=== PATIENT | male | born 1990 | race Caucasian/White ===

== ENCOUNTER 2018-04-22 12:05 | Emergency (ER) | payer BC | END 2018-04-22 12:41 | disposition home or self-care (01) | LOC: NAV ERS 12:05 | DX: M54.5 Low back pain (principal); R20.0 Anesthesia of skin; B20 Human immunodeficiency virus [HIV] disease; F41.9 Anxiety disorder, unspecified; F17.210 Nicotine dependence, cigarettes, uncomplicated | CPT/HCPCS: 99283 ==

== ENCOUNTER 2018-04-24 10:29 | Emergency (ER) | payer BC ==
[2018-04-24 11:54] LABS: #Basophils 0.1 thou/uL (0.0-0.2); #Eosinphils 0.3 thou/uL (0.0-0.7); #Monocytes 0.7 thou/uL (0.11-0.59); #Neutrophils 5.6 thou/uL (1.40-6.50); %Basophils 0.9 % (0.0-1.0); %Eosinophils 3.1 % (0.0-10.0); %Lymphocytes 22.8 % (21.0-51.0); %Monocytes 8.3 % (0.0-10.0); %Neutrophils 64.9 % (42.0-75.0); Hemoglobin 14.8 g/dL (14.0-18.0); Mean Corpuscular HGB CONC 32.7 g/dL (32.0-36.0); Mean Corpuscular Hemoglobin 29.6 pg (27.0-31.0); Mean Corpuscular Volume 90.3 fL (78.0-98.0); Mean Platelet Volume 8.8 fL (7.4-10.4); Platelet Count 234 thou/uL (130-400); RBC Distribution Width 12.7 % (11.5-14.5); White Blood Cell (WBC) Count 8.5 thou/uL (4.8-10.8)
[2018-04-24 12:12] LABS: ALT (SGPT) 20 U/L (8-55); AST (SGOT) 18 U/L (5-34); Albumin 4.4 g/dL (3.5-5.0); Alkaline Phosphatase 71 U/L (40-150); Anion Gap 13 mmol/L (10-20); BUN (Urea Nitrogen) 13 mg/dL (8.9-20.6); Bilirubin, Total 0.4 mg/dL (0.2-1.2); Calc. Creatinine Clearance 0 mL/min (70-130); Calcium 10.3 mg/dL (7.8-10.44); Carbon Dioxide 26 mmol/L (22-29); Chloride 103 mmol/L (98-107); Estimated GFR-MDRD 86; Glucose 116 mg/dL (70-105); Potassium 4.2 mmol/L (3.5-5.1); Protein, Total 7.4 g/dL (6.0-8.3); Sodium 138 mmol/L (136-145)
== END 2018-04-24 15:23 | disposition short-term general hospital (02) ==
LOC: NAV ERS 10:29
DX: M54.5 Low back pain (principal); M54.2 Cervicalgia; R20.2 Paresthesia of skin; B20 Human immunodeficiency virus [HIV] disease; F41.9 Anxiety disorder, unspecified; F17.210 Nicotine dependence, cigarettes, uncomplicated; Z79.899 Other long term (current) drug therapy
CPT/HCPCS: 36415; 80053; 85025; 86140; 87040; 99284

== ENCOUNTER 2018-07-01 21:31 | Emergency (ER) | payer SELFPAY ==
[2018-07-01] MEDS ORDERED: Ibuprofen 200 MG TAB ONE (21:48)
--- NOTE | 2018-07-01 22:16 | CT ---
FHead CT without contrast 07/01/2018: COMPARISON: none HISTORY: Congestion and left ear pain, headache TECHNIQUE: Axial CT imaging at 5 mm intervals from vertex through skull base without contrast FINDINGS: Imaged paranasal sinuses and mastoid air cells unremarkable. No acute osseous abnormality. No intracranial hemorrhage, midline shift, mass effect, or ventricular enlargement. IMPRESSION: No acute findings.
[2018-07-01] MEDS ORDERED: Sodium Chloride 0.9% 100 ML ONE (22:38)
[2018-07-01] MEDS ORDERED: Metoclopramide HCl 10 MG/2 ML VIAL ONE (22:38)
[2018-07-01] MEDS ORDERED: cefTRIAXone\\ROCEPHIN 1 GM VIAL ONE (22:38)
[2018-07-01] MEDS ORDERED: Sodium Chloride 0.9% 1,000 ML ONE (22:38)
[2018-07-01 22:54] LABS: #Basophils 0.1 thou/uL (0.0-0.2); #Eosinphils 0.1 thou/uL (0.0-0.7); #Lymphocytes 1.4 thou/uL (1.20-3.40); #Monocytes 0.8 thou/uL (0.11-0.59); #Neutrophils 7.4 thou/uL (1.40-6.50); %Basophils 0.8 % (0.0-1.0); %Lymphocytes 14.2 % (21.0-51.0); %Monocytes 8.3 % (0.0-10.0); %Neutrophils 75.7 % (42.0-75.0); Hemoglobin 14.9 g/dL (14.0-18.0); Mean Corpuscular HGB CONC 32.4 g/dL (32.0-36.0); Mean Corpuscular Hemoglobin 29.4 pg (27.0-31.0); Mean Corpuscular Volume 90.6 fL (78.0-98.0); Mean Platelet Volume 8.1 fL (7.4-10.4); Platelet Count 227 thou/uL (130-400); RBC Distribution Width 12.8 % (11.5-14.5); Red Blood Cell (RBC) Count 5.09 mill/uL (4.70-6.10); White Blood Cell (WBC) Count 9.8 thou/uL (4.8-10.8)
[2018-07-01 23:08] LABS: Anion Gap 15 mmol/L (10-20); BUN (Urea Nitrogen) 13 mg/dL (8.9-20.6); Calc. Creatinine Clearance 0 mL/min (70-130); Calcium 10.2 mg/dL (7.8-10.44); Carbon Dioxide 24 mmol/L (22-29); Chloride 101 mmol/L (98-107); Estimated GFR-MDRD 70; Glucose 135 mg/dL (70-105); Potassium 4.1 mmol/L (3.5-5.1); Sodium 136 mmol/L (136-145)
[2018-07-01] MEDS ORDERED: Acetaminophen 500 MG TAB ONE (23:13)
[2018-07-03] MEDS ORDERED: Lactated Ringer's 0 ML ONE (00:39)
== END 2018-07-01 23:54 | disposition home or self-care (01) ==
LOC: NAV ERS 21:31
DX: H66.92 Otitis media, unspecified, left ear (principal); R51 Headache; B20 Human immunodeficiency virus [HIV] disease; F17.210 Nicotine dependence, cigarettes, uncomplicated
CPT/HCPCS: 70450; 80048; 85025; 87804; 96365; 96375; J0696; J2765; J7050; J7120

== ENCOUNTER 2018-07-03 15:56 | Emergency (ER) | payer SELFPAY ==
[~2018-07-03 15:56] MED LIST: Iopamidol 370 76% 100 ML VIAL ONE
[2018-07-03 18:04] LABS: Anion Gap 15 mmol/L (10-20); BUN (Urea Nitrogen) 11 mg/dL (8.9-20.6); Calc. Creatinine Clearance 0 mL/min (70-130); Calcium 10.2 mg/dL (7.8-10.44); Carbon Dioxide 25 mmol/L (22-29); Chloride 100 mmol/L (98-107); Estimated GFR-MDRD 81; Glucose 102 mg/dL (70-105); Potassium 3.8 mmol/L (3.5-5.1); Sodium 136 mmol/L (136-145)
[2018-07-03 18:09] LABS: Mean Corpuscular HGB CONC 32.5 g/dL (32.0-36.0); Mean Corpuscular Hemoglobin 29.6 pg (27.0-31.0); Mean Platelet Volume 8.3 fL (7.4-10.4); Platelet Count 208 thou/uL (130-400); RBC Distribution Width 13.3 % (11.5-14.5); Red Blood Cell (RBC) Count 5.06 mill/uL (4.70-6.10); White Blood Cell (WBC) Count 10.3 thou/uL (4.8-10.8)
[2018-07-03] MEDS ORDERED: Acetaminophen 500 MG TAB ONE (18:13)
[2018-07-03 18:36] LABS: Band 1 % (5-11); Lymphocytes 16 % (21-51); MDiff Complete? YES; Monocytes 10 % (0-10); Neutrophil 73 % (42-75); Platelet Morphology Comment Appears Adequate; RBC Morphology Normal
--- NOTE | 2018-07-03 18:42 | CT ---
FCT brain noncontrast: HISTORY: headache FINDINGS: There is no evidence of acute intra-axial or extra-axial hemorrhage. No mass effect, midline shift, o r extra-axial fluid collection. No evidence of obstructive hydrocephalus. Calvarium is intact. IMPRESSION: No acute intracranial findings.
--- NOTE | 2018-07-03 18:54 | CT ---
FCT neck with contrast: 07/03/2018 HISTORY: 28-year-old male with fever and throat pain. FINDINGS: There are multiple nonnecrotic enlarged cervical lymph nodes at levels 1B, 2A, and 2B bilaterally. Fo r example, a level 2A lymph node on the left measures 2.5 x 2 x 1.5 cm. One of the right level 2B lym ph nodes measures 2 x 0.8 x 2.5 cm. There is diffuse hyperplasia of the adenoids. [place] tonsils ar e bilaterally symmetrically mildly to moderately enlarged. Epiglottis is of normal thickness. Lingual tonsil is minimally enlarged. No retropharyngeal abscess. Unremarkable thyroid. Mucosal thickening o f true and false focal cords, and aryepiglottic folds. Other than the lymphadenopathy, no other abnor mality is identified involving the parotid, carotid, submandibular, retropharyngeal, vp account director, para pharyngeal, and posterior cervical, spaces. No thyroid enlargement. IMPRESSION: 1. Findings suggestive of a diffuse infectious or inflammatory process, perhaps viral, with hyperplas ia of Waldeyer's ring, laryngitis, and upper cervical lymphadenopathy. 2. No abscess.
[2018-07-03] MEDS ORDERED: Sodium Chloride 0.9% 0 ML ONE (19:15)
[2018-07-03] MEDS ORDERED: cefTRIAXone\\ROCEPHIN 1 GM VIAL ONE (19:23)
== END 2018-07-03 19:45 | disposition home or self-care (01) ==
LOC: NAV ERS 15:56
DX: H66.92 Otitis media, unspecified, left ear (principal); J02.9 Acute pharyngitis, unspecified; M54.2 Cervicalgia; B20 Human immunodeficiency virus [HIV] disease; F17.210 Nicotine dependence, cigarettes, uncomplicated; Z79.891 Long term (current) use of opiate analgesic; Z79.899 Other long term (current) drug therapy; Z79.1 Long term (current) use of non-steroidal anti-inflammatories (NSAID)
CPT/HCPCS: 36415; 70450; 70492; 80048; 85025; 87081; 87430; 96374; J0696; J7050; Q9967

== ENCOUNTER 2018-07-17 17:00 | Emergency (ER) | payer OTHER, SELFPAY | END 2018-07-17 18:33 | disposition home or self-care (01) | LOC: NAV ERS 17:00 | DX: R50.9 Fever, unspecified (principal); F17.210 Nicotine dependence, cigarettes, uncomplicated | CPT/HCPCS: 87804; 99283 ==

== ENCOUNTER 2018-10-23 16:05 | Emergency (ER) | payer OTHER | END 2018-10-23 16:38 | disposition home or self-care (01) | LOC: NAV ERS 16:05 | DX: J06.9 Acute upper respiratory infection, unspecified (principal); B20 Human immunodeficiency virus [HIV] disease; F17.210 Nicotine dependence, cigarettes, uncomplicated | CPT/HCPCS: 99281 ==

== ENCOUNTER 2018-12-23 16:36 | Emergency (ER) | payer OTHER ==
[2018-12-23] MEDS ORDERED: Acetaminophen 325 MG TAB ONE (18:03)
[2018-12-23] MEDS ORDERED: Ketorolac Tromethamine 60 MG/2 ML VIAL ONE (18:03)
== END 2018-12-23 18:30 | disposition home or self-care (01) ==
LOC: NAV ERS 16:36
DX: G89.29 Other chronic pain (principal); M54.16 Radiculopathy, lumbar region; B20 Human immunodeficiency virus [HIV] disease; F17.210 Nicotine dependence, cigarettes, uncomplicated
CPT/HCPCS: 96372; 99283; J1885

== ENCOUNTER 2019-04-27 13:25 | Emergency (ER) | payer SELFPAY | END 2019-04-27 14:12 | disposition home or self-care (01) | LOC: NAV ERS 13:25 | DX: J06.9 Acute upper respiratory infection, unspecified (principal); I10 Essential (primary) hypertension; B20 Human immunodeficiency virus [HIV] disease; F17.210 Nicotine dependence, cigarettes, uncomplicated; Z79.899 Other long term (current) drug therapy | CPT/HCPCS: 99283 ==

== ENCOUNTER 2019-05-09 15:20 | Emergency (ER) | payer SELFPAY | END 2019-05-09 16:23 | disposition home or self-care (01) | LOC: NAV ERS 15:20 | DX: B34.9 Viral infection, unspecified (principal); B20 Human immunodeficiency virus [HIV] disease; F17.210 Nicotine dependence, cigarettes, uncomplicated; Z71.6 Tobacco abuse counseling; Z79.899 Other long term (current) drug therapy | CPT/HCPCS: 87804; 99406 ==

== ENCOUNTER 2019-06-12 00:14 | Emergency (ER) | payer SELFPAY ==
--- NOTE | 2019-06-12 12:01 | RAD ---
Chest 2 views HISTORY: Cough. Congestion. FINDINGS: No comparison. Cardiac silhouette and pulmonary vasculature are unremarkable. Mediastinum i s midline. No confluent airspace consolidation, pneumothorax, or pleural fluid. IMPRESSION: No active cardiopulmonary abnormalities are demonstrated.
== END 2019-06-12 01:03 | disposition home or self-care (01) ==
LOC: NAV ERS 00:14
DX: J06.9 Acute upper respiratory infection, unspecified (principal); B20 Human immunodeficiency virus [HIV] disease; F17.210 Nicotine dependence, cigarettes, uncomplicated
CPT/HCPCS: 71046; 87081; 87430; 87804

== ENCOUNTER 2019-09-30 05:09 | Emergency (ER) | payer SELFPAY ==
[2019-09-30] MEDS ORDERED: Ketorolac Tromethamine 60 MG/2 ML VIAL ONE (05:39)
[2019-09-30] MEDS ORDERED: predniSONE 20 MG TAB ONE (05:39)
[2019-09-30] MEDS ORDERED: Acetaminophen 325 MG TAB ONE (05:40)
== END 2019-09-30 06:02 | disposition home or self-care (01) ==
LOC: NAV ERS 05:09
DX: M54.16 Radiculopathy, lumbar region (principal); B20 Human immunodeficiency virus [HIV] disease; F17.210 Nicotine dependence, cigarettes, uncomplicated
CPT/HCPCS: 96372; 99283; J1885; J7512

== ENCOUNTER 2020-03-21 22:23 | Emergency (ER) | payer SELFPAY ==
[2020-03-21 23:26] LABS: #Basophils 0.1 thou/uL (0.0-0.2); #Eosinphils 0.3 thou/uL (0.0-0.7); #Lymphocytes 0.9 thou/uL (1.20-3.40); #Monocytes 0.5 thou/uL (0.11-0.59); #Neutrophils 7.2 thou/uL (1.40-6.50); %Basophils 1.3 % (0.0-1.0); %Eosinophils 3.8 % (0.0-10.0); %Lymphocytes 9.6 % (21.0-51.0); %Neutrophils 79.4 % (42.0-75.0); Hemoglobin 16.4 g/dL (14.0-18.0); Mean Corpuscular HGB CONC 34.1 g/dL (32.0-36.0); Mean Corpuscular Hemoglobin 31.5 pg (27.0-31.0); Mean Corpuscular Volume 92.4 fL (78.0-98.0); Mean Platelet Volume 8.6 fL (7.4-10.4); Platelet Count 228 thou/uL (130-400); RBC Distribution Width 11.6 % (11.5-14.5)
--- NOTE | 2020-03-21 23:33 | RAD ---
EXAM: Single view of the chest HISTORY: Shortness of breath and cough COMPARISON: 06/12/2019 FINDINGS: Single view of the chest shows a normal sized cardiomediastinal silhouette. There is no tanya dence of consolidation, mass, or pleural effusion. No acute osseous abnormality. IMPRESSION: No evidence of acute cardiopulmonary disease
[2020-03-21] MEDS ORDERED: Sodium Chloride 0.9% 1,000 ML ONE (23:41)
[2020-03-21 23:44] LABS: ALT (SGPT) 59 U/L (8-55); AST (SGOT) 40 U/L (5-34); Albumin 4.7 g/dL (3.5-5.0); Alkaline Phosphatase 66 U/L (40-110); Anion Gap 17 mmol/L (10-20); BUN (Urea Nitrogen) 9 mg/dL (8.9-20.6); Bilirubin, Total 0.5 mg/dL (0.2-1.2); Calc. Creatinine Clearance 0 mL/min (70-130); Calcium 9.6 mg/dL (7.8-10.44); Carbon Dioxide 25 mmol/L (22-29); Chloride 98 mmol/L (98-107); Glucose 116 mg/dL (70-105); Potassium 3.9 mmol/L (3.5-5.1); Protein, Total 7.7 g/dL (6.0-8.3); Sodium 136 mmol/L (136-145)
[2020-03-23 02:59] LABS: SARS-CoV-2 MS2 Positive; SARS-CoV-2 N Gene Positive; SARS-CoV-2 S Gene Positive; SARS-CoV-2 by NAA DETECTED (NotDetected); SARS-CoV-2 orf1ab Positive
== END 2020-03-22 00:25 | disposition home or self-care (01) ==
LOC: NAV ERS 22:23
DX: R07.89 Other chest pain (principal); B34.9 Viral infection, unspecified; Z20.828 Contact with and (suspected) exposure to other viral communicable diseases; B20 Human immunodeficiency virus [HIV] disease; F17.210 Nicotine dependence, cigarettes, uncomplicated; Z79.899 Other long term (current) drug therapy
CPT/HCPCS: 71045; 80053; 83605; 84484; 85025; 85379; 87635; 93005; 94760; J7050; U0003

== ENCOUNTER 2021-09-20 18:45 | Emergency (ER) | payer OTHER, SELFPAY ==
[2021-09-20] MEDS ORDERED: Sodium Chloride 0.9% 1,000 ML ONE (19:17)
[2021-09-20 19:28] LABS: #Basophils 0.1 thou/uL (0.0-0.2); #Eosinphils 0.5 thou/uL (0.0-0.7); #Lymphocytes 2.7 thou/uL (1.20-3.40); #Neutrophils 4.4 thou/uL (1.40-6.50); %Basophils 1.3 % (0.0-1.0); %Eosinophils 5.8 % (0.0-10.0); %Lymphocytes 30.4 % (21.0-51.0); %Monocytes 11.7 % (0.0-10.0); %Neutrophils 50.8 % (42.0-75.0); Hemoglobin 13.8 g/dL (14.0-18.0); Mean Corpuscular HGB CONC 32.9 g/dL (32.0-36.0); Mean Corpuscular Hemoglobin 31.1 pg (27.0-31.0); Mean Corpuscular Volume 94.5 fL (78.0-98.0); Mean Platelet Volume 9.6 fL (7.4-10.4); Platelet Count 259 thou/uL (130-400); RBC Distribution Width 11.9 % (11.5-14.5); Red Blood Cell (RBC) Count 4.44 mill/uL (4.70-6.10); White Blood Cell (WBC) Count 8.8 thou/uL (4.8-10.8)
[2021-09-20 19:40] LABS: ALT (SGPT) 46 U/L (8-55); AST (SGOT) 34 U/L (5-34); Albumin 4.5 g/dL (3.5-5.0); Alkaline Phosphatase 66 U/L (40-110); Anion Gap 17 mmol/L (10-20); BUN (Urea Nitrogen) 20 mg/dL (8.9-20.6); Bilirubin, Total 0.5 mg/dL (0.2-1.2); CK (CPK) 635 U/L (30-200); Calc. Creatinine Clearance 0 mL/min (70-130); Calcium 9.4 mg/dL (7.8-10.44); Carbon Dioxide 24 mmol/L (22-29); Chloride 98 mmol/L (98-107); Globulin 2.7 g/dL (2.4-3.5); Glucose 158 mg/dL (70-105); Potassium 3.3 mmol/L (3.5-5.1); Protein, Total 7.2 g/dL (6.0-8.3); Sodium 136 mmol/L (136-145)
[2021-09-20] MEDS ORDERED: Potassium Chloride 20 MEQ TAB ONE (20:11)
== END 2021-09-20 20:17 | disposition home or self-care (01) ==
LOC: NAV ERS 18:45
DX: E86.0 Dehydration (principal); E87.6 Hypokalemia; F17.210 Nicotine dependence, cigarettes, uncomplicated
CPT/HCPCS: 80053; 82550; 85025; 96360; J7050

== ENCOUNTER 2021-09-27 14:43 | Emergency (ER) | payer SELFPAY ==
[2021-09-27 15:29] LABS: #Basophils 0.1 thou/uL (0.0-0.2); #Eosinphils 0.5 thou/uL (0.0-0.7); #Lymphocytes 2.2 thou/uL (1.20-3.40); #Monocytes 0.6 thou/uL (0.11-0.59); #Neutrophils 5.1 thou/uL (1.40-6.50); %Basophils 0.8 % (0.0-1.0); %Eosinophils 5.6 % (0.0-10.0); %Lymphocytes 26.3 % (21.0-51.0); %Monocytes 7.3 % (0.0-10.0); %Neutrophils 59.9 % (42.0-75.0); Hemoglobin 12.3 g/dL (14.0-18.0); Mean Corpuscular HGB CONC 31.9 g/dL (32.0-36.0); Mean Corpuscular Hemoglobin 30.7 pg (27.0-31.0); Mean Corpuscular Volume 96.4 fL (78.0-98.0); Mean Platelet Volume 9.7 fL (7.4-10.4); Platelet Count 232 thou/uL (130-400); White Blood Cell (WBC) Count 8.5 thou/uL (4.8-10.8)
[2021-09-27 15:55] LABS: ALT (SGPT) 40 U/L (8-55); AST (SGOT) 25 U/L (5-34); Alkaline Phosphatase 51 U/L (40-110); Anion Gap 15 mmol/L (10-20); BUN (Urea Nitrogen) 8 mg/dL (8.9-20.6); Bilirubin, Total 0.3 mg/dL (0.2-1.2); CK (CPK) 196 U/L (30-200); Calc. Creatinine Clearance 0 mL/min (70-130); Carbon Dioxide 26 mmol/L (22-29); Chloride 103 mmol/L (98-107); Estimated GFR 84; Globulin 2.4 g/dL (2.4-3.5); Glucose 131 mg/dL (70-105); Potassium 3.9 mmol/L (3.5-5.1); Protein, Total 6.4 g/dL (6.0-8.3); Sodium 140 mmol/L (136-145)
== END 2021-09-27 15:51 | disposition short-term general hospital (02) ==
LOC: NAV ERS 14:43
DX: R60.0 Localized edema (principal); R00.1 Bradycardia, unspecified; F17.210 Nicotine dependence, cigarettes, uncomplicated; Z21 Asymptomatic human immunodeficiency virus [HIV] infection status; Z79.899 Other long term (current) drug therapy
CPT/HCPCS: 80053; 82550; 83880; 84484; 85025; 93005

== ENCOUNTER 2021-11-02 02:57 | Emergency (ER) | payer SELFPAY ==
[2021-11-02] MEDS ORDERED: Sulfameth/Trimethoprim DS 800-160mg TAB ONE (03:23)
== END 2021-11-02 03:29 | disposition home or self-care (01) ==
LOC: NAV ERS 02:57
DX: L03.113 Cellulitis of right upper limb (principal); F17.210 Nicotine dependence, cigarettes, uncomplicated
CPT/HCPCS: 99283

== ENCOUNTER 2025-03-29 13:49 | Emergency (ER) | payer SELFPAY ==
[2025-03-29] MEDS ORDERED: Naproxen 500 MG TAB ONE (14:33)
== END 2025-03-29 15:21 | disposition home or self-care (01) ==
LOC: NAV ERS 13:49
DX: M77.11 Lateral epicondylitis, right elbow (principal); F17.210 Nicotine dependence, cigarettes, uncomplicated; Z79.899 Other long term (current) drug therapy
CPT/HCPCS: 99283